=== PATIENT | female | born 1995 | race Two or more races ===

== ENCOUNTER 2025-05-14 17:11 | Emergency (ER) | payer MEDICAID, SELFPAY ==
[2025-05-14 17:13] VITALS: BMI 35.0
[2025-05-14 17:29] VITALS: BP 147/82; PULSE 94; RESP 16; TEMP 37; O2SAT 100
--- NOTE | 2025-05-14 17:37 | XR_ITS ---
Examination: Breast ultrasound, unilateral, left complete Date and time of exam: May 14, 2025, 1911 hrs. Indications: Left breast pain and tenderness beginning 3 days ago Technique: Real-time rfye scale ultrasonographic imaging performed left breast including all 4 quadrants as well as nipple retroareolar and axillary region. Findings: No cystic or solid mass Impression: Negative examination
--- NOTE | 2025-05-14 17:37 | PD.EDRME ---
Rapid Medical Screening Exam RME Arrival date/time: 05/14/25 17:11 29-year-old female with no known medical history presents to the emergency room with a chief complaint of tenderness, and erythema to her left breast. Patient states she feels a mass in her left breast. The patient also had drainage from the areola at this morning. I have greeted and performed a focused initial assessment of this patient. A comprehensive ED assessment and evaluation of the patient, analysis of all test results, and completion of the medical decision making process will be conducted by additional ED providers. Chief Complaint: Skin/Abscess/Foreign Body Time Seen by Provider: 05/14/25 18:33 Vital signs: Vital Signs Temperature 98.6 F 05/14/25 17:29 Pulse Rate 94 05/14/25 17:29 Respiratory Rate 16 05/14/25 17:29 Blood Pressure 147/82 H 05/14/25 17:29 Pulse Oximetry (%) 100 05/14/25 17:29 Oxygen Delivery Method Room Air 05/14/25 17:29
[2025-05-14 18:02] LABS: Basophils # (Auto) 0.0 Thou/mm3 (0.0-0.2); Basophils % (Auto) 0 % (0-2.5); Eosinophils # (Auto) 0.1 Thou/mm3 (0.0-0.5); Eosinophils % (Auto) 1 % (0-10); Hematocrit 37.0 % (36.0-46.0); Hemoglobin 12.5 g/dL (12.0-16.0); Immature Granulocytes Auto 0.02 Thou/mm3 (0.00-0.00); Lymphocytes # (Auto) 2.2 Thou/mm3 (1.0-4.8); Lymphocytes % (Auto) 23 % (10-50); Mean Corpuscular HGB Conc 33.8 g/dl (31.0-37.0); Mean Corpuscular Hemoglobin 28.3 pg (25.0-35.0); Mean Corpuscular Volume 84 fL (80-100); Monocytes # (Auto) 0.7 Thou/mm3 (0.0-0.8); Monocytes % (Auto) 7 % (0-12); Neutrophils # (Auto) 6.5 Thou/mm3 (1.8-7.7); Neutrophils % (Auto) 69 % (37-80); Nucleated Red Blood Cell # 0.00 Thou/mm3 (0.00-0.00); Nucleated Red Blood Cell % 0 /100 WBC (0); Platelet Count 341 Thou/mm3 (140-440); RDW Standard Deviation 39.7 fL (36.4-46.3); Red Blood Count 4.41 Miln/mm3 (4.00-5.20); White Blood Count 9.5 Thou/mm3 (3.6-11.0)
[2025-05-14 18:14] LABS: Alanine Aminotransferase 18 U/L (10-49); Albumin, Serum 4.4 gm/dL (3.5-5.0); Albumin/Globulin Ratio 1.8 (1.2-2.2); Alkaline Phosphatase 61 U/L (46-116); Anion Gap 9 (7-16); Aspartate Amino Transferase 17 U/L (0-34); BUN/Creatinine Ratio 17 Ratio (12-20); Bilirubin,Total 0.2 mg/dL (0.3-1.2); Blood Urea Nitrogen 10 mg/dL (9-23); Calcium 9.3 mg/dL (8.3-10.6); Calcium (Corrected) 9.3 mg/dL (8.5-10.1); Carbon Dioxide 26.2 mMol/L (20.0-31.0); Chloride 105 mMol/L (98-107); Creatinine (Component) 0.6 mg/dL (0.6-1.3); Estimated Creatinine Clearance 145.8 mL/min (>60); Globulin 2.4 gm/dL (2.3-3.5); Glucose 88 mg/dL (74-106); Osmolality,Calculated 277 (275-295); Potassium 3.9 mMol/L (3.4-5.1); Sodium 140 mMol/L (136-145); Total Protein 6.8 gm/dL (5.7-8.2); eGFR > 60 See Note
--- NOTE | 2025-05-14 19:55 | PD.EDSKIN ---
ED Skin Abcess FB-RME/HPI General Chief complaint: Skin/Abscess/Foreign Body Stated complaint: LEFT BREAST PAIN WITH LUMP, DISCHARGE FROM NIPPLE Time Seen by Provider: 05/14/25 18:33 Arrival date/time: 05/14/25 17:11 RME / HPI RME / HPI narrative: 29-year-old female with no known medical history presents to the emergency room with a chief complaint of tenderness, and erythema to her left breast. Patient states she feels a mass in her left breast. The patient also had drainage from the areola at this morning. Onset of symptoms since yesterday, severity of symptoms mild. Patient denies any . Patient is not breast-feeding. Denies any fever. Denies any other complaints no medication was taken prior to ER visit. Patient told me that she had similar episode in the past, and she was diagnosed with mastitis. Related Data Previous Rx's ?Medication ?Instructions ?Recorded ondansetron 4 mg disintegrating 4 mg PO Q4H PRN nausea and 11/19/22 tablet vomiting #10 tabs doxycycline hyclate 100 mg capsule 100 mg PO BID #20 caps 05/14/25 ibuprofen 800 mg tablet 800 mg PO Q8H PRN pain #30 tabs 05/14/25 Allergies Allergy/AdvReac Type Severity Reaction Status Date / Time No Known Allergies Allergy Verified 05/14/25 17:13 Review of Systems Review of Systems Narrative Review of Systems: Review of system reviewed and within normal limits except mentioned in HPI ED Exam Narrative Physical exam: VITAL SIGNS: Reviewed. GENERAL APPEARANCE: Alert and interactive, follows commands, no acute distress, HEAD AND FACE: Non-traumatic. ENT: PERRL, pink conjunctivitis, eyelid no trauma, Mucous membrane moist. NECK: Supple, nontender, no nuchal rigidity. CHEST: No tenderness, no crepitus, no paradoxical movement, no retractions. LUNGS: Clear, well ventilated, symmetric, no rales, no wheezing, no ronchi, no stridor, good breath sounds bilaterally. HEART: Regular rate, regular rhythm, no murmur, no gallops. Breast : Breast examination was done by me with a female revenue enforcement collection agent all the time. I did not notice any redness to the breast area, however I palpated 2 x 2 cm mass on the 7 o'clock position, no drainage noted to the areola, nontender nonfluctuant. ABDOMEN: Soft, positive bowel sounds, nondistended, no guarding, nontender, no rebound, no masses, RECTAL: Deferred. GENITAL: Deferred. NEUROLOGICAL: Gross motor function intact sensory function intact, Appropriate for age. MUSCULOSKELETAL: low back nontender, full range of motion. EXTREMITIES: Nontender, full range of motion. SKIN: Color pink, dry, no rash, no lacerations, no abrasions, no contusions. LYMPHATICS: Deferred. Course Quality Measures none Orders Category Date Time Status US breast LT complete Stat Exams 05/14/25 17:37 Taken CBC Stat Lab 05/14/25 17:46 Completed CMP [Comprehensive Metabolic Panel] Stat Lab 05/14/25 17:46 Completed Doxycycline [Vibramycin] Med 05/14/25 19:54 Once 100 mg PO X1 ONE Ibuprofen Tab [Motrin Tab] Med 05/14/25 19:54 Once 800 mg PO X1 ONE Vital Signs Vital signs: Vital Signs Temperature 98.6 F 05/14/25 17:29 Pulse Rate 94 05/14/25 17:29 Respiratory Rate 16 05/14/25 17:29 Blood Pressure 147/82 H 05/14/25 17:29 Pulse Oximetry (%) 100 05/14/25 17:29 Oxygen Delivery Method Room Air 05/14/25 17:29 Skin / Abscess / Foreign Body MDM Narrative MDM Narrative:: 29-year-old female with no known medical history presents to the emergency room with a chief complaint of tenderness, and erythema to her left breast. Patient states she feels a mass in her left breast. The patient also had drainage from the areola at this morning. Onset of symptoms since yesterday, severity of symptoms mild. Patient denies any . Patient is not breast-feeding. Denies any fever. Denies any other complaints no medication was taken prior to ER visit. Patient told me that she had similar episode in the past, and she was diagnosed with mastitis. Patient's laboratory workup all came back unremarkable there is no leukocytosis. Ultrasound of the breast showed possible cystic area no solid masses noted. Results discussed with the patient. Patient will be started on doxycycline and Motrin in the emergency room. At this time I do not believe the patient is having breast abscess. However I told the patient to closely follow-up with PCP and asked for referral to general surgeon in 1 to 2 days. Patient agrees with the plan. Patient was also advised to return to emergency room for worsening of symptoms. Patient data External records reviewed:: None Clinical information provided by:: patient Social determinants that could affect healthcare access:: none Patient has the following chronic illnesses:: None How is presenting disease/condition affected by chronic disease/condition?: no chronic disease Evaluation data The following diagnostics were reviewed and interpreted by me:: lab results and radiology exam(s) Lab and/or radiology exams considered but not ordered:: None Interpretation Summary: See results MDM Medications / Prescriptions Medications or Prescriptions considered but not ordered:: None Medication administrations:: Medication Administration History Doxycycline Hyclate (Doxycycline 100 Mg Tablet) 100 mg PO X1 ONE Stop: 05/14/25 19:55 Ibuprofen (Ibuprofen Tab 400 Mg Tablet) 800 mg PO X1 ONE Stop: 05/14/25 19:55 Doxycycline Motrin Consultations Consultation(s) initiated? (list below): No Diagnosis Skin/Abscess Differential Diagnosis: abscess of skin or subcutaneous tissue and other (Mastitis, breast cyst) Most likely diagnosis given after review of the tests above:: Mastitis, cyst in the breast Admission Indicated Admission indicated?: not indicated Admission Request Was there a request for admission?: No Disposition Plan Disposition Plan: Discharge Discharge Attestation Discharge Attestation: The patient and all family members were given an opportunity to ask questions and understood the discharge instructions. Discharge instructions specifically effects, indications for sooner follow up or return to the emergency department, and the expected course of current diagnosis. Patient condition: Stable Discharge Plan Plan Patient Disposition: HOME (Self Care) Discharge Disposition comment: Stable Prescriptions/Referrals Prescriptions/Med Rec: New doxycycline hyclate 100 mg capsule 100 mg PO BID Qty: 20 0RF ibuprofen 800 mg tablet 800 mg PO Q8H PRN (Reason: pain) Qty: 30 0RF No Action ondansetron 4 mg tablet,disintegrating 4 mg PO Q4H PRN (Reason: nausea and vomiting) Qty: 10 0RF Rx Instructions: 1st dose 1-2 hr before radiation Referrals: Asa Stephens MD [Primary Care Provider, Family Practice] - In 1 week Problem List Clinical Impression: Mastitis, Breast cyst Patient/Caregiver Discharge Instructions Discharge Activity: activity as tolerated Education Materials: Understanding Breast Cysts, ED Mastitis Additional Instructions: Thank you for the opportunity for serving you today. You are stable for discharged . You are advised to: Follow-up with your PCP in 1 to 2 days and for outpatient workup regarding breast cyst outpatient mammogram, and outpatient referral to general surgeon. Return to ED for worsening of symptoms Increase oral fluids Take medication as prescribed Print Language: Mohawk Stand Alone Forms: Diane Award Info., Patient Portal Info Letter
[2025-05-14] MEDS: IBUPROFEN TAB 400 MG TABLET 800 MG PO (20:01)
[2025-05-14] MEDS: DOXYCYCLINE 100 MG TABLET PO (20:02)
== END 2025-05-14 20:08 | disposition home or self-care (01) ==
PROVIDERS: Nurse Practitioner Family; Emergency Provider Emergency Medicine; PCP Family Medicine
DX: N61.0 Mastitis without abscess (principal); N60.02 Solitary cyst of left breast
CPT/HCPCS: 36415; 76641; 80053; 85025; 99283; A9270

== ENCOUNTER 2025-07-30 22:46 | Emergency (ER) | payer MEDICAID, SELFPAY ==
[2025-07-30 22:47] VITALS: BP 143/96; PULSE 79; RESP 18; TEMP 36.8; O2SAT 100
--- NOTE | 2025-07-30 23:10 | XR_ITS ---
Examination: CT brain head without contrast. 2-D sagittal coronal reconstructions Date and time of exam: July 30, 2025 1121 hours INDICATIONS: Headache beginning 20 minutes ago CTDI: vol (mGy): 58.5 DLP: (mGycm): 1246 Technique: Multiple CT axial sections of the brain have been obtained, 5 mm slice thickness. Contrast has not been administered. 2-D sagittal, coronal reconstructions have been obtained Low dose protocols were performed. One or more of the following dose reduction techniques were used; automated exposure control, adjustment of the mA and/or KV according to patient size, use of iterative reconstruction technique. Findings: No significant ventricular enlargement. Intra-axial or extra-axial hemorrhage density is not seen. No mass effect or midline shift Basal cisterns are not remarkable. Fourth ventricle is midline. Cranial vault intact. Impression: Negative for acute hemorrhage, mass effect or midline shift Chronic ethmoid sinusitis
--- NOTE | 2025-07-30 23:11 | EDNOTE_ITS ---
ED Headache RME/HPI General Chief Complaint: Headache Stated Complaint: HEADACHE Time Seen by Provider: 07/30/25 23:07 Arrival date/time: 07/30/25 22:46 RME / HPI RME / HPI Narrative: See [facility] for Dr. Estevez's HPI Documentation. Related Data Previous Rx's ?Medication ?Instructions ?Recorded ondansetron 4 mg disintegrating 4 mg PO Q4H PRN nausea and 11/19/22 tablet vomiting #10 tabs doxycycline hyclate 100 mg capsule 100 mg PO BID #20 c aps 05/14/25 fluconazole 150 mg tablet 150 mg PO Q3D 23 doses #3 ta bs 05/14/25 ibuprofen 800 mg tablet 800 mg PO Q8H PRN pain #30 t abs 05/14/25 acetaminophen 300 mg-codeine 30 mg 2 tab PO Q8H PRN pa in #20 tabs 07/31/25 tablet amoxicillin 875 mg-potassium 1 tab PO BID #20 tabs clavulanate 125 mg tablet Allergies Allergy/AdvReac Type Severity Reaction Status Date / Time No Known Allergies Allergy Verified 07/30/25 22:47 Review of Systems Review of Systems Systems Reviewed: All systems reviewed, normal except as documented Past Medical History Past Medical History REPRODUCTIVE: Positive Previous Pregnancies OTHER HISTORY: Positive Blood Transfusions Family History FAMILY HISTORY: Positive Family Respiratory Disorders Surgical History SURGICAL: Positive Tubal Ligation and Section ED Exam Narrative Physical exam: See [facility] for Dr. Estevez's Physical Exam Documentation. Course Quality Measures none Orders Category Date Time Status CT head/brain wo con Stat Exams 07/30/25 23:10 Completed ACETAMINOPHEN w/COD 300-30 [Tylenol w/Cod #3] Med 07/30/25 23:07 Discontinued 2 tab PO X1 ONE Ibuprofen Tab [Motrin Tab] Med 07/30/25 23:07 Discontinued 800 mg PO X1 ONE Ondansetron Odt [Zofran Odt] Med 07/30/25 23:07 Discontinued 4 mg PO X1 ONE Vital Signs Vital signs: Vital Signs Temperature 98.2 F 07/30/25 22:47 Pulse Rate 79 07/30/25 22:47 Respiratory Rate 18 07/30/25 22:47 Blood Pressure 143/96 H 11/28/25 22:47 Pulse Oximetry (%) 100 07/30/25 22:47 Oxygen Delivery Method Room Air 07/30/25 22:47 Headache MDM Narrative MDM Narrative:: This section includes all my notes and documentations, including HPI, PE, and ED course. Chris Estevez MD HPI: 29 y/o female presents with on and off severe headache x 2 weeks. 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 Reports nausea photophobia and phonophobia. No speech or visual impairment. No loss of power in the arms or legs. No other complaints. ROS: All negative except as documented in HPI. Physical Exam: General: Alert and oriented. Appears uncomfortable. Eyes: Conjunctivae and lids clear. EOMI. PERRL. ENT: No nasal congestion. Pharynx normal. Tympanic membrane normal bilaterally. Neck: Supple. No carotid bruit. No JVD. Heart: RRR. Lungs: No respiratory distress. Good air movement. No rhonchi, wheezing, rales. Abdomen: Soft and nontender. Skin: Warm and dry. Neuro: Alert and oriented X 3. Cranial Nerves II-XII grossly intact. No peripheral motor deficits. I reviewed all diagnostic test results: My review of the Head/Brain CT report is sinusitis. At this point, diagnoses include: Migraine Headache Sinusitis Treatment here included: Two Tylenol #3 Motrin 800 mg Zofran 4 mg She felt much better. Recommended more outpatient workup. Based on my best medical judgment, made decision no further evaluation or treatment indicated at this time. Patient understands and agrees to the discharge instructions customized and printed, see below. Discharge Instructions from Dr. Estevez printed for you: 1. Fortunately, there is no life-threatening condition. Such as stroke or brain tumor. 2. You were treated for migraine headache. Tylenol with codeine for severe pain. 3. For your sinus infection, take Augmentin as prescribed. 4. See a private doctor on 08/02/2025 for recheck. As for help with MRI imaging of the brain and referral to see neurologist to make sure there is no other serious underlying condition. 5. Seek immediate medical care with worsening or with any concerns. Chris Estevez MD Patient data External records reviewed:: [facility] previous records (Reviewed prior ED records from 05/14/25. Patient was seen for Breast cyst.) Clinical information provided by:: patient Social determinants that could affect healthcare access:: none Patient has the following chronic illnesses:: None reported How is presenting disease/condition affected by chronic disease/condition?: no chronic disease Evaluation data The following diagnostics were reviewed and interpreted by me:: radiology exam(s) Lab and/or radiology exams considered but not ordered:: None Interpretation Summary: I reviewed all diagnostic test results: My review of the Head/Brain CT report is sinusitis. Medications / Prescriptions Medications or Prescriptions considered but not ordered:: None Medication administrations:: Medication Administration History Discontinued Medications Acetaminophen/Codeine Phosphate (Acetaminophen W/Cod 300-30 Tablet) 2 tab PO X1 ONE Stop: 07/30/25 23:08 Last Admin: 07/30/25 23:24 Dose: 2 tab Documented By: BD Ibuprofen (Ibuprofen Tab 400 Mg Tablet) 800 mg PO X1 ONE Stop: 07/30/25 23:08 Last Admin: 07/30/25 23:24 Dose: 800 mg Documented By: BD Ondansetron HCl (Ondansetron Odt 4 Mg Tabrap) 4 mg PO X1 ONE; Protocol Stop: 07/30/25 23:08 Last Admin: 07/30/25 23:25 Dose: 4 mg Documented By: BD Treatment here included: Two Tylenol #3 Motrin 800 mg Zofran 4 mg Consultations Consultation(s) initiated? (list below): No Diagnosis Differential diagnosis headache: migraine, tension headache, subarachnoid hemorrhage, headache, meningitis, sinusitis and postconcussion syndrome Most likely diagnosis given after review of the tests above:: Migraine Headache Sinusitis Admission Indicated Admission indicated?: not indicated Explain why admission is indicated or not indicated:: With significant improvement and no condition needing emergent intervention, there was no indication for admission. Admission Request Was there a request for admission?: No Disposition Plan Disposition Plan: Discharge Discharge Attestation Discharge Attestation: The patient and all family members were given an opportunity to ask questions and understood the discharge instructions. Discharge instructions specifically effects, indications for sooner follow up or return to the emergency department, and the expected course of current diagnosis. Patient condition: Stable Discharge Plan Plan Patient Disposition: HOME (Self Care) Prescriptions/Referrals Prescriptions/Med Rec: New acetaminophen-codeine 300-30 mg tablet 2 tab PO Q8H MDD 6 PRN (Reason: pain) Qty: 20 0RF amoxicillin-pot clavulanate 875-125 mg tablet 1 tab PO BID Qty: 20 0RF No Action ondansetron 4 mg tablet,disintegrating 4 mg PO Q4H PRN (Reason: nausea and vomiting) Qty: 10 0RF Rx Instructions: 1st dose 1-2 hr before radiation doxycycline hyclate 100 mg capsule 100 mg PO BID Qty: 20 0RF ibuprofen 800 mg tablet 800 mg PO Q8H PRN (Reason: pain) Qty: 30 0RF fluconazole 150 mg tablet 150 mg PO Q3D Qty: 3 0RF Rx Instructions: may repeat second dose 72 hrs after first dose if symptoms persist Problem List Clinical Impression: Migraine headache, Sinusitis Patient/Caregiver Discharge Instructions Discharge Activity: activity as tolerated Education Materials: ED Headache, Migraine, Classic, ED Sinusitis (Antibiotic Treatment) Additional Instructions: Discharge Instructions from Dr. Estevez printed for you: 1. Fortunately, there is no life-threatening condition. Such as stroke or brain tumor. 2. You were treated for migraine headache. Tylenol with codeine for severe pain. 3. For your sinus infection, take Augmentin as prescribed. 4. See a private doctor on 08/02/2025 for recheck. As for help with MRI imaging of the brain and referral to see neurologist to make sure there is no other serious underlying condition. 5. Seek immediate medical care with worsening or with any concerns. Print Language: Greek Stand Alone Forms: Diane Award Info., Patient Portal Info Letter
[2025-07-30] MEDS: ACETAMINOPHEN w/COD 300-30 TABLET 2 TAB PO (23:24)
[2025-07-30] MEDS: IBUPROFEN TAB 400 MG TABLET 800 MG PO (23:24)
[2025-07-30] MEDS: ONDANSETRON ODT 4 MG TABRAP PO (23:25)
[2025-07-31 00:35] VITALS: RESP 18
== END 2025-07-31 00:37 | disposition home or self-care (01) ==
PROVIDERS: Emergency Provider Emergency Medicine; PCP Physician Assistant
DX: G43.909 Migraine, unspecified, not intractable, without status migrainosus (principal); J32.2 Chronic ethmoidal sinusitis
CPT/HCPCS: 70450; 99282; Q0162; A9270